=== PATIENT | male | born 1970 | race Caucasian/White ===

== ENCOUNTER 2017-06-22 19:16 | Observation (INO) | payer BC ==
[~2017-06-22] VITALS: Ht 185.4 cm; Wt 96.0 kg
[2017-06-22 20:26] LABS: BILIRUBIN,URINE NEGATIVE (NEGATIVE); UROBILINOGEN,URINE NORMAL (NEGATIVE)
[2017-06-22] MEDS ORDERED: LACTATED RINGERS 1,000 ML ONE (20:32)
[2017-06-22] MEDS ORDERED: DEMEROL ONE (20:33)
[2017-06-22] MEDS ORDERED: ZOFRAN IV STA (20:33)
[2017-06-22] MEDS ORDERED: DEMEROL IV STA (20:33)
[2017-06-22] MEDS ORDERED: ZOFRAN ONE (20:33)
--- NOTE | 2017-06-22 20:37 | ER.PDOC ---
General Chief Complaint: Abdomen Pain Stated Complaint: ABDOMINAL PAIN,VOMITING Time seen by MD: 20:36 Source: patient Exam Limitations: no limitations History of Present Illness Initial Comments Abdominal pain since early hours of this morning Severity/Quality: severe, sharpness Radiation: no radiation Associated Symptoms: nausea/vomiting Exacerbated by: nothing Relieved By: nothing Allergies: Coded Allergies: No Known Allergies (Unverified , 04/06/13) Home Meds Reported Medications Lisinopril (LISINOPRIL) 10 Mg Tablet, 1 TAB PO DAILY, #30 TAB 5 Refills 06/22/17 Hydrocodone Bit/Acetaminophen (NORCO 10-325 TABLET) 10-325 T1 Ea Tab, 1 EACH PO PRN Y for PAIN, TABLET 06/22/17 Vital Signs First Vital Signs Date Time Temp Pulse Resp B/P (MAP) Pulse Ox O2 Delivery O2 Flow Rate FiO2 06/22/17 20:22 97.6 120 20 100 Last Vital Signs Date Time Temp Pulse Resp B/P (MAP) Pulse Ox O2 Delivery O2 Flow Rate FiO2 06/22/17 20:28 97.6 120 20 100 Past Medical History Medical History: GERD, hypertension Surgical History: knee Social History Smoking: cigar, less than 1 pack/day Alcohol Use: heavy Drug Use: marijuana Constitutional: no symptoms reported Respiratory: no symptoms reported Cardiovascular: no symptoms reported Gastrointestinal: see HPI All Other Systems: Reviewed and Negative Physical Exam General Appearance: No Apparent Distress, WD/WN Respiratory: chest non-tender, lungs clear, normal breath sounds, no respiratory distress, no accessory muscle use Cardiovascular: Normal Peripheral Pulses, Regular Rate, Rhythm, No Edema, No Gallop, No JVD, No Murmur Gastrointestinal: Normal Bowel Sounds, No Organomegaly, No Pulsatile Mass, Guarding, Tenderness (mid abdomen) Back: Normal Inspection, No CVA Tenderness, No Vertebral Tenderness Extremities: Normal Range of Motion, Non-Tender, Normal Inspection, No Pedal Edema, No Calf Tenderness, Normal Capillary Refill, Pelvis Stable Neurologic/Psychiatric: field assessor II-XII NML as Tested, No Motor/Sensory Deficits, Alert, Normal Mood/Affect, Oriented x 3 Skin: Normal Color, Warm/Dry Progress Progress Patient continue to vomit in the ED with pain EKG/XRAY/CT/US EKG Comments: Sinus tachycardia CT Comments: Normal CT abdomen/Pelvis Course Blood Pressure Systolic: 185 Blood Pressure Diastolic: 110 Blood Pressure Mean: 135 Departure Time of Disposition: 21:43 Disposition: 09 ADMITTED INPATIENT Impression: Primary Impression: Gastroenteritis Additional Impression: Dehydration Condition: Stable Referrals: EITAN DAY (PCP) PRIMARY CARE PROVIDER Comments Admitted to Dr. Bustamante Problem Qualifiers BENITA,CLAUDIA Juárez MD Jun 22, 2017 20:37
[2017-06-22 20:43] LABS: BASOPHIL % 0.1 % (0.0-0.2); LYMPHOCYTES # 0.9 10^3/uL (1.0-4.8); LYMPHOCYTES % 6.1 % (24.0-44.0); MEAN CELL HGB 29.9 pg (26-34); MEAN CELL HGB CONCENTRATION 34.5 g/dL (33-37); MEAN CORP VOLUME 86.6 fL (78-100); MEAN PLATELET VOLUME 9.7 fL (7.8-11.0); MONOCYTES # 0.4 10^3/uL (0.3-0.8); MONOCYTES % 2.4 % (5.0-12.0); NEUTROPHIL # 13.9 10^3/uL (1.8-7.7); NEUTROPHILS % 91.1 % (41.0-85.0); RED CELL DISTRIBUTION WIDTH 13.5 % (11.5-14.5); WHITE BLOOD CELL 15.2 10^3/uL (4.5-11.0)
--- NOTE | 2017-06-22 20:48 | PCM.EKG ---
[facility] Test Date: 2017-06-22 Test Time: 20:45:52 Pat Name: ARIEL VINCENT Department: Room: 309 Gender: M [employer]: [id number] : [id number] Requested By: CLAUDIA JOY Order Number: [id number] Reading MD: Claudia JOY Measurements Intervals [place] Rate: 116 P: 75 TX: 162 QRS: 80 QRSD: 86 T: -65 QT: 318 QTc: 442 Interpretive Statements Sinus tachycardia Nonspecific T wave abnormality Abnormal ECG No previous ECG available for comparison Electronically Signed On 06-23-2017 3:28:04 PHTHALIC ACID PURIFIER by Claudia JOY Please click the below link to view image of tracing.
[2017-06-22 20:56] LABS: APPEARANCE,URINE HAZY (CLEAR); UA COLOR DARK YELLOW (YELLOW); WBC,URINE 0-2 WBC/HPF (0-2)
[2017-06-22 21:06] LABS: CALCIUM 10.1 mg/dL (8.4-10.5); CARBON DIOXIDE 26.5 mmol/L (20.0-32)
--- NOTE | 2017-06-22 21:11 | DIREP ---
PROCEDURE:CT ABDOMEN/PELVIS W/O CONTRAST COMPARISON:[facility] [place], CT, CT-ABDOMEN /PELVIS W/O CONTRAST, 04/21/2013, 03:47 AM. INDICATIONS:Abdominal pain TECHNIQUE:Axial images were created through the abdomen and pelvis without intravenous contrast material. No oral contrast was administered. Sagittal and coronal reconstructions were performed from source images. FINDINGS: LUNG BASES:Normal. No visible pulmonary or pleural disease. LIVER:Normal. No significant liver lesions are identified. BILIARY:Normal. No visible dilatation or calcification. PANCREAS:Normal. No lesion, fluid collection, ductal dilatation, or atrophy. SPLEEN:Normal. No enlargement or focal lesion. ADRENALS:Normal. No mass or enlargement. URINARY TRACT:Normal. No focal lesions or hydronephrosis. AORTA/VASCULAR:Normal. No aneurysm. RETROPERITONEUM:Normal. No mass or adenopathy. BOWEL/MESENTERY:The appendix is visualized and appears normal. There is no intestinal obstruction, free fluid, free air or mesenteric inflammatory changes. ABDOMINAL WALL:Normal. No mass or hernia. PELVIC ORGANS:Normal. No visible mass. Pelvic organs appropriate for patient age. BONES:Normal for age. No bony lesion or acute fracture. OTHER:Negative. CONCLUSION:Normal examination. Dictated by: Travis Larose MD on 06/22/2017 at 09:08 PM
[2017-06-22] MEDS ORDERED: TORADOL ONE (21:16)
[2017-06-22] MEDS ORDERED: PHENERGAN ONE (21:16)
[2017-06-22] MEDS ORDERED: PHENERGAN IV STA (21:26)
[2017-06-22] MEDS ORDERED: TORADOL IV STA (21:26)
[2017-06-22] MEDS ORDERED: HYDR-922 PO (21:35)
[2017-06-22] MEDS ORDERED: LISI10TA2 PO (21:35)
--- NOTE | 2017-06-22 21:46 | PRM.ACF1 ---
Date and Time Date and Time Time: 21:45 Admission Criteria Forms DEHYDRATION Clinical Indications for Admission to Inpatient Care ([place]/check or initial the applicable condition/criteria) Admission is indicated for 1or more of the following (1)(2)(3) [ ]I. Serious cause for dehydration requiring acute hospitalization(e.g., bowel obstruction, increased intracranial pressure, infectious cause) [x ]II. Inpatient admission required [A] rather than observation care (see Dehydration:Observation Care guideline as appropriate)because of ANY ONE of the following (4)(5) [ ]a) Vomiting that is severe or persistent [ ]a) Dehydration that is severe or persistent [ ]a) IV fluid required rather than oral rehydration to replace significant ongoing(eg, for greater than 24 hours)losses(greaterthan3 L/j3pbfeze ) (6) [ ]a) Parenteral nutrition regimen that must be implemented on inpatient basis [ ]a) Other condition, treatment, or monitoring requiring inpatient admission Extended stay beyond goal length of stay may be needed for (1)(2)(3)(9) [ ]a) Chronic severe dehydration [ ]b) Persistent vital sign changes, severe electrolyte imbalance, or diagnosed cause of dehydration that requires continued hospitalization(e.g., bowel obstruction, increased intracranial pressure) [ ]c) Severe comorbid illness (e.g., renal failure, heart failure, poorly controlled diabetes) [ ]d) Older patients (75 years or older) The original [email or web address] content created by [email or web address] has been revised. The portions of the content which have been revised are identified through the use of italic text, and [email or web address] has neither reviewed nor approved the modified material. All other unmodified content is copyright [email or web address]. Please see references footnoted in the original [email or web address] edition 2014 CLAUDIA JOY MD Jun 22, 2017 21:46
[2017-06-22 21:49] LABS: BAND NEUTROPHILS 1 % (2-6); LYMPHOCYTE 8 % (25-36); MONOCYTE 1 % (3-9); SEGMENTED NEUTROPHILS 90 % (31-76)
[2017-06-22 22:03] LABS: UR BENZODIAZEPINE QUAL NEGATIVE (NEGATIVE); UR COCAINE QUAL NEGATIVE (NEGATIVE)
[2017-06-22 22:45] VITALS: BP 169/90
[2017-06-22] MEDS: D5W-1/2 NS/KCL 20MEQ 1,000 ML IV SCH (22:45)
[2017-06-22] MEDS ORDERED: MAG-OX PO PRN (23:00)
[2017-06-22] MEDS: DILAUDID IV PRN (23:18)
[2017-06-22] MEDS: REGLAN IV PRN (23:19)
[2017-06-23] MEDS ORDERED: MYLANTA ONE (04:03)
[2017-06-23] MEDS: MYLANTA PO PRN (04:17)
[2017-06-23 04:39] VITALS: BP 132/88
[2017-06-23 07:41] VITALS: BP 154/108
[2017-06-23] MEDS: REGLAN IV PRN (07:53)
[2017-06-23] MEDS: DILAUDID IV PRN (07:54)
[2017-06-23] MEDS: D5W-1/2 NS/KCL 20MEQ 1,000 ML IV SCH (07:55)
[2017-06-23 09:22] LABS: BASOPHIL % 0.1 % (0.0-0.2); EOSINOPHIL % 0.1 % (0.0-5.0); HEMOGLOBIN 14.6 g/dL (13.9-16.3); LYMPHOCYTES # 1.8 10^3/uL (1.0-4.8); LYMPHOCYTES % 9.1 % (24.0-44.0); MEAN CELL HGB 30.1 pg (26-34); MEAN CELL HGB CONCENTRATION 33.8 g/dL (33-37); MEAN CORP VOLUME 89.1 fL (78-100); MEAN PLATELET VOLUME 9.3 fL (7.8-11.0); MONOCYTES # 1.3 10^3/uL (0.3-0.8); MONOCYTES % 6.9 % (5.0-12.0); NEUTROPHIL # 16.1 10^3/uL (1.8-7.7); NEUTROPHILS % 83.6 % (41.0-85.0); RED CELL DISTRIBUTION WIDTH 13.7 % (11.5-14.5); WHITE BLOOD CELL 19.3 10^3/uL (4.5-11.0)
[2017-06-23] MEDS: NS 1000ML 1,000 ML IV SCH ×2 (09:30→20:26)
[2017-06-23] MEDS ORDERED: NS IV SCH (09:30)
[2017-06-23 09:31] LABS: CARBON DIOXIDE 26.7 mmol/L (20.0-32)
[2017-06-23 12:49] VITALS: BP 140/86
[2017-06-23 19:46] VITALS: BP 120/80
[2017-06-23] MEDS ORDERED: NORCO 10MG PO PRN (22:30)
--- NOTE | 2017-06-23 23:03 | HPH ---
ADMIT DATE: 06/22/2017 CHIEF COMPLAINT: Nausea and vomiting and abdominal pain. HISTORY OF PRESENT ILLNESS: The patient is a 47-year-old man with a past medical history significant only for hypertension and chronic pain, with opiate dependence, who presented to the ER with complaints of abdominal pain, nausea and vomiting. The symptoms had started on the morning of presentation to the Emergency Room. The pain was severe and sharp in nature. He could not actually identify a particular location. There was no radiation of the pain. It was associated with nausea and vomiting. He did not have diarrhea. He has had no recent travel, no known sick contacts. He denied any fever or chills. He has not been on any recent antibiotics. PAST MEDICAL HISTORY: Includes hypertension, GERD, chronic pain with opiate dependence. PAST SURGICAL HISTORY: He has had knee surgery. ALLERGIES: NO KNOWN DRUG ALLERGIES. HOME MEDICATIONS: His home medication list only include [place] 10-325 mg and lisinopril 10 mg daily. SOCIAL HISTORY: He lives at home. Positive tobacco use history. Heavy alcohol use history. He also uses illicit drugs and marijuana. FAMILY HISTORY: Negative for early coronary artery disease or diabetes. REVIEW OF SYSTEMS: CARDIAC: He denied chest pain, shortness of breath, or dyspnea on exertion. PULMONARY: No cough, sputum production, or pleuritic chest pain. GASTROINTESTINAL: Positive for nausea and vomiting. No diarrhea or constipation. All else negative in the 10-point Review of Systems, except as for that in the HPI. PHYSICAL EXAMINATION: VITAL SIGNS: Vitals upon arrival: Height 185.4 cm, weight 95.2 kilograms, temperature 97.6 degrees Fahrenheit, pulse 120, respiratory rate 20, blood pressure 146/99 mmHg, and O2 saturation 100% on room air. GENERAL: He is alert, in no acute distress at the time of exam. HEENT: Pupils are equal, round, and reactive to light. Sclerae are anicteric. Oropharynx is clear. Mucous membranes are moist. NECK: Supple, no lymphadenopathy. CARDIOVASCULAR: At the time of exam was tachycardic, regular rhythm. PULMONARY: The lungs are clear bilaterally, no wheezing. ABDOMEN: Soft. Bowel sounds are present. Nontender to palpation. EXTREMITIES: No cyanosis, clubbing, or significant edema. NEUROLOGIC: Grossly nonfocal. LABORATORY DATA: Initial labs: CBC: White count 15.2, hemoglobin 17.0, platelets 381. DIFFERENTIAL: 91% neutrophils, 6% lymphocytes, 2% monocytes. BMP: Sodium 138, potassium 3.8, chloride 101, CO2 26, BUN 19, creatinine 1.26, glucose 153, calcium 10.1, total bilirubin 0.7, AST 15, ALT 44, alkaline phosphatase 92, total protein 7.8, albumin 4.1, lipase 73. PT 11.0, PTT 22.9. DRUG SCREEN: Positive for opiates, tricyclic antidepressants, and marijuana. URINALYSIS: pH 7.0, specific gravity 1.015, 15 mg/dL protein. All else was essentially negative. IMAGING STUDIES: An abdomen and pelvis CT performed in the Emergency Room revealed negative acute changes, normal examination. ASSESSMENT AND PLAN: The patient is a 47-year-old man here on sepsis criteria with the SIRS criteria being tachycardia and leukocytosis with the source likely being viral gastroenteritis with a history of hypertension, also with drug abuse with marijuana. 1. Give IV fluid hydration. 2. Appropriate p.r.n. pain and nausea medications. 3. We will hold off on antibiotics at this time as there are no signs of an actual bacterial infection that can be noted. We will follow clinically. 4. We will continue his ABIGAIL inhibitor. 5. Appropriate p.r.n. pain and nausea medications. 6. DVT prophylaxis will be with Lovenox. Time spent with the patient on June 23, 2017 was 45 minutes. This plan was discussed with the patient who is his own decision maker, and he did understand and concurred with the plans. Jan Bustamante MD DR: EDWIGE/jung JOB# [id number]
[2017-06-23 23:43] VITALS: BP 115/78
[2017-06-24] MEDS: ZOFRAN IV PRN ×3 (02:26→17:05)
[2017-06-24] MEDS: DILAUDID IV PRN ×2 (04:01→12:54)
[2017-06-24] MEDS: REGLAN IV PRN ×3 (04:02→22:34)
[2017-06-24 04:10] VITALS: BP 168/112
[2017-06-24] MEDS: MYLANTA PO PRN ×2 (04:27→19:51)
[2017-06-24] MEDS: NS 1000ML 1,000 ML IV SCH ×3 (05:30→23:49)
[2017-06-24 08:08] LABS: BASOPHIL % 0.2 % (0.0-0.2); EOSINOPHIL % 0.2 % (0.0-5.0); HEMOGLOBIN 14.7 g/dL (13.9-16.3); LYMPHOCYTES # 1.6 10^3/uL (1.0-4.8); LYMPHOCYTES % 12.7 % (24.0-44.0); MEAN CELL HGB 30.2 pg (26-34); MEAN CELL HGB CONCENTRATION 33.8 g/dL (33-37); MEAN CORP VOLUME 89.5 fL (78-100); MEAN PLATELET VOLUME 9.2 fL (7.8-11.0); MONOCYTES # 0.6 10^3/uL (0.3-0.8); MONOCYTES % 5.1 % (5.0-12.0); NEUTROPHIL # 10.3 10^3/uL (1.8-7.7); NEUTROPHILS % 81.5 % (41.0-85.0); RED CELL DISTRIBUTION WIDTH 13.1 % (11.5-14.5); WHITE BLOOD CELL 12.6 10^3/uL (4.5-11.0)
[2017-06-24 08:25] LABS: CALCIUM 8.5 mg/dL (8.4-10.5); CARBON DIOXIDE 25.3 mmol/L (20.0-32)
[2017-06-24] MEDS ORDERED: LOVENOX SQ SCH (09:00)
[2017-06-24] MEDS ORDERED: ZESTRIL PO SCH (09:00)
[2017-06-24] MEDS: BENTYL PO SCH ×2 (11:30→19:50)
[2017-06-24] MEDS ORDERED: BENTYL ONE ×2 (11:49→19:16)
--- NOTE | 2017-06-24 14:16 | DIREP ---
PROCEDURE:CT ABDOMEN/PELVIS W/ CONTRAST COMPARISON:None. INDICATIONS:Abdominal pain TECHNIQUE:Axial images were created through the abdomen and pelvis with non-ionic intravenous contrast material. Oral contrast was administered. Sagittal and coronal reconstructions were performed from source images. FINDINGS: LUNG BASES:Normal. No visible pulmonary or pleural disease. LIVER:Normal. No significant liver lesions are identified. BILIARY:Normal. No visible dilatation or calcification. PANCREAS:Normal. No lesion, fluid collection, ductal dilatation, or atrophy. SPLEEN:Normal. No enlargement or focal lesion. ADRENALS:Normal. No mass or enlargement. URINARY TRACT:Normal. No focal lesions or hydronephrosis. AORTA/VASCULAR:Normal. No aneurysm. RETROPERITONEUM:Normal. No mass or adenopathy. BOWEL/MESENTERY:Normal. There is no intestinal obstruction, free fluid, free air or mesenteric inflammatory changes. Moderate hiatal hernia. Normal appendix. ABDOMINAL WALL:Normal. No mass or hernia. PELVIC ORGANS:Normal. No visible mass. Pelvic organs appropriate for patient age. BONES:Right unilateral pars defect with grade 2 anterolisthesis of L5 on S1 in severe neural foraminal stenosis bilaterally. OTHER:Negative. CONCLUSION:Advanced L5-S1 degenerative joint disease with grade 2 anterolisthesis and severe bilateral neural foraminal stenosis. Otherwise, unremarkable abdomen and pelvis. Dictated by: Santino Rain DO on 06/24/2017 at 02:11 PM
[2017-06-24 16:28] VITALS: BP 157/88
--- NOTE | 2017-06-24 19:33 | PNH ---
DATE: 06/24/2017 SUBJECTIVE: He still complains of abdominal pain and cramping. He has some mild nausea, but has not had emesis. He has taken a hot bath, which he states relieved his symptoms. OBJECTIVE: VITAL SIGNS: T-max the last 24 hours is 98.6 degrees Fahrenheit, pulse 97, respiratory rate 18, blood pressure 168/112 mmHg, and O2 saturation 97% on room air. GENERAL: He is alert, in no acute distress at the time of exam. HEENT: Pupils are equal, round, and reactive to light. Sclerae are anicteric. Oropharynx is clear. Mucous membranes are moist. NECK: Supple, no lymphadenopathy. CARDIOVASCULAR: At the time of exam was regular rate and rhythm. PULMONARY: The lungs were clear bilaterally, no wheezing. ABDOMEN: The abdomen was soft. Bowel sounds are present. He was nontender on palpation. EXTREMITIES: No cyanosis, clubbing, or significant edema. NEUROLOGIC: Grossly nonfocal. LABORATORY DATA: CBC: White count 12.6, hemoglobin 14.7, platelets 310. DIFFERENTIAL: 81% neutrophils, 12% lymphocytes, 5% monocytes. BMP: Sodium 139, potassium 3.9, chloride 104, CO2 25, BUN 13, creatinine 1.09, glucose 113, calcium 8.5, total bilirubin 0.7, AST 14, ALT 34, alkaline phosphatase 76, total protein 6.8, albumin 2.7. Repeat abdomen and pelvis CT was done with p.o. contrast as well as with IV contrast, which only showed severe degenerative disk disease in the lumbar spine with L5-S1. 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 1. We will continue diet as tolerated. We will start Bentyl 10 mg before meals. Continue IV Reglan. 2. Continue his ABIGAIL inhibitor for blood pressure control. 3. Appropriate p.r.n. pain and nausea medications. 4. DVT prophylaxis with Lovenox. 6. IV fluid hydration. Time spent with the patient on June 24, 2017: 25 minutes Jan Bustamante MD DR: EDWIGE/jung JOB# [id number]
[2017-06-24 20:14] VITALS: BP 125/86
[2017-06-25 02:05] VITALS: BP 113/72
[2017-06-25] MEDS ORDERED: DICY10CA52 PO (07:56)
--- NOTE | 2017-06-25 08:04 | PRM.DC ---
Discharge Summary Date of Discharge: Jun 25, 2017 Reason for Visit: Abdominal pain, nausea History Present Illness: (1) Cannabinoid hyperemesis syndrome SEVERITY: MILD INTERMITTENT Status: Acute ICD Code: F12.988 - Cannabis use, unspecified with other cannabis-induced disorder SNOMED: 816692503, [id number] Assessment & Plan: Symptoms relieved with hot showers (2) Dehydration Status: Resolved ICD Code: E86.0 - Dehydration SNOMED: 39650739 (3) Gastroenteritis Status: Resolved ICD Code: K52.9 - Noninfective gastroenteritis and colitis, unspecified SNOMED: 89309845 General: Alert, Oriented X3, Cooperative, No acute distress HEENT: PERRLA, EOMI Neck: Supple, No JVD Lungs: Clear to auscultation, Normal air movement Heart: Regular rate, Normal S1, Normal S2 Abdomen: Normal bowel sounds, Soft, No tenderness Extremities: No clubbing, No cyanosis, No edema Skin: No rashes, No breakdown Neuro: Normal gait, Normal speech, Strength at 5/5 X4 ext, Cranial nerves 3-12 NL Psych/Mental Status: Mental status NL, Mood NL Results(Labs/Rad) Laboratory Tests Test 06/23/17 09:20 06/24/17 08:00 White Blood Count 19.3 10^3/uL 12.6 10^3/uL Red Blood Count 4.85 10^6/uL 4.86 10^6/uL Hemoglobin 14.6 g/dL 14.7 g/dL Hematocrit 43.2 % 43.5 % Mean Corpuscular Volume 89.1 fL 89.5 fL Mean Corpuscular Hemoglobin 30.1 pg 30.2 pg Mean Corpuscular Hemoglobin Concent 33.8 g/dL 33.8 g/dL Red Cell Distribution Width 13.7 % 13.1 % Platelet Count 319 10^3/uL 310 10^3/uL Mean Platelet Volume 9.3 fL 9.2 fL Neutrophils (%) (Auto) 83.6 % 81.5 % Lymphocytes (%) (Auto) 9.1 % 12.7 % Monocytes (%) (Auto) 6.9 % 5.1 % Neutrophils # (Auto) 16.1 10^3/uL 10.3 10^3/uL Lymphocytes # (Auto) 1.8 10^3/uL 1.6 10^3/uL Monocytes # (Auto) 1.3 10^3/uL 0.6 10^3/uL Absolute Immature Granulocyte (auto 0.04 10^3 u/L 0.04 10^3 u/L Eosinophils % 0.1 % 0.2 % Basophils % 0.1 % 0.2 % Basophils # 0.0 10^3/uL 0.0 10^3/uL Eosinophil Count 0.0 10^3/uL 0.0 10^3/uL Sodium Level 139 mmol/L 139 mmol/L Potassium Level 3.8 mmol/L 3.9 mmol/L Chloride Level 105.0 mmol/L 104.0 mmol/L Carbon Dioxide Level 26.7 mmol/L 25.3 mmol/L Glucose Level 135 mg/dL 113 mg/dL Blood Urea Nitrogen 20 mg/dL 13 mg/dL Creatinine 1.19 mg/dL 1.09 mg/dL Calcium Level 9.0 mg/dL 8.5 mg/dL Anion Gap 11.1 13.6 Estimated GFR () 79.6 88.1 BUN/Creatinine Ratio 16.0 11.0 Percent Immature Gran (Cell Imm) 0.20 % 0.30 % Total Bilirubin 0.7 mg/dL Aspartate Amino Transf (AST/SGOT) 14 U/L Alanine Aminotransferase (ALT/SGPT) 34 U/L Alkaline Phosphatase 76 U/L Total Protein 6.8 g/dL Albumin 2.7 g/dL Globulin 4.1 Scheduled Lisinopril (Lisinopril), 1 TAB PO DAILY, (Reported) Scheduled PRN Dicyclomine Hcl (Bentyl), 10 MG PO TIDAC PRN for Abdominal cramping Hydrocodone Bit/Acetaminophen ([place] 10-325 Tablet), 1 EACH PO PRN PRN for PAIN, (Reported) Sepsis Evaluation @ Discharge Course Blood Pressure Systolic: 113 Blood Pressure Diastolic: 72 Blood Pressure Mean: 86 Notes Mr Aranda presented to the ER with abdominal pain and nausea. He had an elevated WBC but no signs of bacterial infection. He was given IV fluids and repeat CT abd/pelvis with PO contrast did not reveal any acute intra-abdominal pathology. He does have a marijuana use history. His symptoms were relieved with hot showers consistent with cannabinoid hyperemesis syndrome. Bentyl did have some palliative effective and he was given a prescription for this medication. Plan Discharge Date: Jun 25, 2017 Dicharge DX: 1. Acute gastroenteritis, 2. Cannabinoid hyperemesis syndrome Discharge Disposition: Stable Plan Medications per discharge list Diet and activity as tolerated Follow up with PCP 1-2 weeks or as needed Discharge plans discussed with patient, he is his own decision maker and does understand and concur with plans Time spent 25 minutes KINJAL MAYFIELD MD Jun 25, 2017 08:04
[2017-06-25 08:23] VITALS: BP 113/72
[2017-06-28 08:21] LABS: OPIATES Negative (Cutoff=200)
== END 2017-06-25 08:20 | disposition home or self-care (01) ==
LOC: ER 19:16 → MS 21:43 → EDBEDREQ 21:54
PROVIDERS: ADMIT Internal Medicine; ATTEND Internal Medicine
DX: A08.4 Viral intestinal infection, unspecified (principal); I10 Essential (primary) hypertension; G89.29 Other chronic pain; K21.9 Gastro-esophageal reflux disease without esophagitis; F11.20 Opioid dependence, uncomplicated; E86.0 Dehydration; R00.0 Tachycardia, unspecified; D72.829 Elevated white blood cell count, unspecified; F12.10 Cannabis abuse, uncomplicated; A41.9 Sepsis, unspecified organism; Z72.0 Tobacco use; Z98.890 Other specified postprocedural states
CPT/HCPCS: 36415 ×3; 74176; 74177; 80048; 80053 ×2; 80307; 80349; 81000; 83690; 85025 ×3; 85610; 93005; 96372; 96374; 96375 ×6; 96376 ×2; 99285; G0378 ×59; J1170 ×4; J1650; J1885; J2175; J2405 ×4; J2550; J2765 ×5; J7030 ×5; J7070 ×2; J7120; Q9967; Q9963